=== PATIENT | female | born 1960 | race African-American/Black ===

== ENCOUNTER 2017-08-22 18:17 | Inpatient (IN) | payer OTHER ==
[2017-08-22 18:20] VITALS: BMI 24.2
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
[2017-08-22] MEDS ORDERED: ACETAMINOPHEN 325 MG TABLET (FP) PO PRN (19:23)
[2017-08-22] MEDS ORDERED: IBUPROFEN 400 MG TABLET (FP) PO PRN (19:23)
[2017-08-22] MEDS ORDERED: LOPERAMIDE HCL 2 MG CAPSULE PO PRN (19:23)
[2017-08-22] MEDS ORDERED: MAG HYDROX/AL HYDROX/SIMETH 30 ML UNIT-DOSE CUP PO PRN (19:23)
[2017-08-22] MEDS ORDERED: MENTHOL/PHENOL 1 EACH UD MM PRN (19:23)
[2017-08-22] MEDS ORDERED: guaiFENesin/D-METHORPHAN HB 10 ML UNIT-DOSE CUPS PO PRN (19:23)
[2017-08-22] MEDS ORDERED: METHADONE HCL 10 MG TABLET (FOR DETOX USE ONLY) PO ONE ×2 (19:23→23:00)
[2017-08-22] MEDS ORDERED: NICOTINE POLACRILEX 2 MG GUM BUC PRN (19:23)
[2017-08-22] MEDS ORDERED: hydrOXYzine PAMOATE 50 MG CAPSULE (FP) PO PRN (19:23)
[2017-08-22] MEDS ORDERED: MAGNESIUM HYDROX 2400MG/30ML ORAL SUSPENSION 30 ML CUP PO PRN (19:23)
[2017-08-22] MEDS ORDERED: P-EPHED 60MG/TRIPROLIDI 2.5MG TABLET PO PRN (19:23)
[2017-08-22] MEDS ORDERED: chlordiazePOXIDE HCL 25 MG CAPSULE PO PRN (19:23)
[2017-08-22] MEDS ORDERED: MAGNESIUM CITRATE 300 ML BOTTLE PO PRN (19:23)
[2017-08-22] MEDS ORDERED: chlordiazePOXIDE HCL 25 MG CAPSULE PO ONE (19:45)
[2017-08-22] MEDS: NICOTINE 21 MG/24 HOURS TOPICAL PATCH TD SCH (20:50)
[2017-08-22] MEDS ORDERED: MELATONIN 5 MG TABLETS PO PRN (22:00)
[2017-08-22] MEDS: chlordiazePOXIDE HCL 25 MG CAPSULE PO SCH (22:20)
[2017-08-22] MEDS: THIAMINE HCL 100 MG TABLET (FP) PO SCH (22:21)
[2017-08-23] MEDS: chlordiazePOXIDE HCL 25 MG CAPSULE PO SCH ×4 (05:46→22:14)
[2017-08-23] MEDS: PRENATAL VITAMINS W/ FOLIC ACID TABLET (FP) PO SCH (09:21)
[2017-08-23] MEDS: NICOTINE 21 MG/24 HOURS TOPICAL PATCH TD SCH (09:22)
[2017-08-23 09:54] LABS: URINE APPEARANCE CLOUDY; URINE BILIRUBIN NEGATIVE (<2.0 mg/dL); URINE COLOR YELLOW; URINE GLUCOSE (UA) NEGATIVE (NEGATIVE); URINE KETONE NEGATIVE (NEGATIVE); URINE LEUK ESTERASE NEGATIVE (NEGATIVE); URINE NITRITE NEGATIVE (NEGATIVE); URINE PROTEIN NEGATIVE (NEGATIVE); URINE UROBILINOGEN 4.0 E.U/dl mg/dL (0.2-1.0)
[2017-08-23 09:59] LABS: CHLORIDE 107 mmol/L (98-107); MCH 31.6 pg (25.7-33.7); MCHC 33.3 g/dl (32.0-36.0); MEAN PLT VOLUME 8.5 fl (7.5-11.1); PLATELET COUNT 253 K/MM3 (134-434); POTASSIUM 3.3 mmol/L (3.5-5.1); RDW 15.2 % (11.6-15.6); SODIUM 143 mmol/L (136-145); WHITE BLOOD COUNT 5.9 K/mm3 (4.0-10.0)
[2017-08-23] MEDS ORDERED: METHADONE HCL 10 MG TABLET (FOR DETOX USE ONLY) PO SCH (10:00)
[2017-08-23 10:13] LABS: ALK PHOS 115 U/L (45-117); ANION GAP 8 (8-16); BILIRUBIN,TOTAL 0.2 mg/dL (0.2-1.0); BLOOD UREA NITROGEN 14 mg/dL (7-18); CALCIUM 8.3 mg/dL (8.5-10.1); CO2 28 mmol/L (21-32); CREATININE 0.9 mg/dL (0.55-1.02); GLUCOSE,RANDOM 117 mg/dL (74-106); SGOT/AST 13 U/L (15-37); SGPT/ALT 15 U/L (12-78); TOT PROT 5.9 g/dl (6.4-8.2)
--- NOTE | 2017-08-23 14:34 | EKG ---
Test Reason : Blood Pressure : / mmHG Vent. Rate : 062 BPM Atrial Rate : 062 BPM P-R Int : 146 ms QRS Dur : 076 ms QT Int : 400 ms P-R-T Axes : 054 -23 014 degrees QTc Int : 406 ms NORMAL SINUS RHYTHM NORMAL ECG NO PREVIOUS ECGS AVAILABLE Confirmed by MD Jovany, Cali ([id number]) on 08/23/2017 2:34:32 PM Referred By: Fabien Lane Confirmed By:Cali Manzo MD
[2017-08-23] MEDS ORDERED: POTASSIUM CHLORIDE TABS 20 MEQ TABLET.ER (FP) PO ONE (15:49)
--- NOTE | 2017-08-23 15:57 | PN ---
[facility] CIWA - CIWA Score Nausea/Vomitin Muscle Tremors: 4-Moderate,w/Arms Extend Anxiety: 4-Mod. Anxious/Guarded Agitation: 4-Moderately Restless Paroxysmal Sweats: 3 Orientation: 0-Oriented Tacttile Disturbances: 1-Very Mild Itch/Numbness Auditory Disturbances: 0-None Visual Disturbances: 0-None Headache: 1-Very Mild CIWA-Ar Total Score: 20 BHS COWS - Scale Resting Pulse: 1= [place] 81-100 Sweatin= Chills/Flushing Restless Observation: 3= Extraneous Movement Pupil Size: 1= Pupils >than Normal Bone or Joint Aches: 2= Severe Diffuse Aches Runny Nose/ Eye Tearin= Runny Nose/Eyes GI Upset > 30mins: 2= Nausea/Diarrhea Tremor Observation of Outstretched Hands: 2= Slight Tremor Visible Yawning Observation: 1= 1-2x During Session Anxiety or Irritability: 2=Irritable/Anxious Goose Flesh Skin: 0=Smooth Skin COWS Score: 17 S Progress Note (SOAP) Subjective: Asleep, arousable, refused to speak with sports book writer Objective: 08/23/17 15:55 Last Vital Signs Temp Pulse Resp BP Pulse Ox 98.2 F 91 H 16 111/59 08/23/17 13:17 08/23/17 13:17 08/23/17 13:17 08/23/17 13:17 Laboratory Tests 08/23/17 08/23/17 08/23/17 07:15 07:15 07:15 WBC 5.9 RBC 4.10 Hgb 13.0 Hct 39.0 MCV 95.0 MCH 31.6 MCHC 33.3 RDW 15.2 Plt Count 253 MPV 8.5 D Sodium 143 Potassium 3.3 L Chloride 107 Carbon Dioxide 28 Anion Gap 8 BUN 14 Creatinine 0.9 Creat Clearance w eGFR > 60 Random Glucose 117 H Calcium 8.3 L Total Bilirubin 0.2 D AST 13 L ALT 15 Alkaline Phosphatase 115 Total Protein 5.9 L Albumin 3.0 L Urine Color Urine Appearance Urine pH Ur Specific [place] Urine Protein Urine Glucose (UA) Urine Ketones Urine Blood Urine Nitrite Urine Bilirubin Urine Urobilinogen Ur Leukocyte Esterase RPR Titer Nonreactive HIV 1&2 Antibody Screen HIV P24 Antigen 05/06/18 05/06/18 07:15 07:15 WBC RBC Hgb Hct MCV MCH MCHC RDW Plt Count MPV Sodium Potassium Chloride Carbon Dioxide Anion Gap BUN Creatinine Creat Clearance w eGFR Random Glucose Calcium Total Bilirubin AST ALT Alkaline Phosphatase Total Protein Albumin Urine Color Yellow Urine Appearance Cloudy Urine pH 7.0 Ur Specific [place] 1.019 Urine Protein Negative Urine Glucose (UA) Negative Urine Ketones Negative Urine Blood Negative Urine Nitrite Negative Urine Bilirubin Negative Urine Urobilinogen 4.0 e.u/dl H Ur Leukocyte Esterase Negative RPR Titer HIV 1&2 Antibody Screen Negative HIV P24 Antigen Negative Labs reviewed: Jose Roberto 3.3 Assessment: 08/23/17 15:56 Withdrawal symptoms Noted with hypokalemia Plan: Continue detox Hypokalemia: K Dur 40meq PO x 1 dose, repeat K level in AM
[2017-08-23] MEDS: THIAMINE HCL 100 MG TABLET (FP) PO SCH (22:14)
[2017-08-24] MEDS: chlordiazePOXIDE HCL 25 MG CAPSULE PO SCH ×2 (05:50→10:46)
[2017-08-24] MEDS ORDERED: METHADONE HCL 5 MG TABLET (FOR DETOX USE ONLY) PO SCH (10:00)
[2017-08-24 10:21] VITALS: BP 115/59; PULSE 83; TEMP 98.4
--- NOTE | 2017-08-24 10:45 | PN ---
[facility] CIWA - CIWA Score Nausea/Vomitin-Mild Nausea/No Vomiting Muscle Tremors: 4-Moderate,w/Arms Extend Anxiety: 4-Mod. Anxious/Guarded Agitation: 4-Moderately Restless Paroxysmal Sweats: 1-Minimal Palms Moist Orientation: 0-Oriented Tacttile Disturbances: 2-Mild Itch/Numbness/Burn Auditory Disturbances: 0-None Visual Disturbances: 0-None Headache: 0-None Present CIWA-Ar Total Score: 16 S COWS - Scale Resting Pulse: 0= [place] 80 or Below Sweatin= Chills/Flushing Restless Observation: 3= Extraneous Movement Pupil Size: 0= Normal to Room Light Bone or Joint Aches: 2= Severe Diffuse Aches Runny Nose/ Eye Tearin= Runny Nose/Eyes GI Upset > 30mins: 2= Nausea/Diarrhea Tremor Observation of Outstretched Hands: 2= Slight Tremor Visible Yawning Observation: 2= >3x During Session Anxiety or Irritability: 2=Irritable/Anxious Goose Flesh Skin: 0=Smooth Skin COWS Score: 16 [facility] Progress Note (SOAP) Subjective: joint pain body ache sweat tremor anxiety trouble sleep at night Objective: 08/24/17 10:44 Vital Signs Temperature 98.4 F 08/24/17 10:21 Pulse Rate 83 08/24/17 10:21 Respiratory Rate 18 08/24/17 10:21 Blood Pressure 115/59 08/24/17 10:21 O2 Sat by Pulse Oximetry (%) Laboratory Last Values WBC 5.9 K/mm3 (4.0-10.0) 08/23/17 07:15 RBC 4.10 M/mm3 (3.60-5.2) 08/23/17 07:15 Hgb 13.0 GM/dL (10.7-15.3) 08/23/17 07:15 Hct 39.0 % (32.4-45.2) 08/23/17 07:15 MCV 95.0 fl (80-96) 08/23/17 07:15 MCH 31.6 pg (25.7-33.7) 08/23/17 07:15 MCHC 33.3 g/dl (32.0-36.0) 08/23/17 07:15 RDW 15.2 % (11.6-15.6) 08/23/17 07:15 Plt Count 253 K/MM3 (134-434) 08/23/17 07:15 MPV 8.5 fl (7.5-11.1) D 08/23/17 07:15 Sodium 143 mmol/L (136-145) 08/23/17 07:15 Potassium 4.3 mmol/L (3.5-5.1) 08/24/17 07:00 Chloride 107 mmol/L (98-107) 08/23/17 07:15 Carbon Dioxide 28 mmol/L (21-32) 08/23/17 07:15 Anion Gap 8 (8-16) 08/23/17 07:15 BUN 14 mg/dL (7-18) 08/23/17 07:15 Creatinine 0.9 mg/dL (0.55-1.02) 08/23/17 07:15 Creat Clearance w eGFR > 60 (>60) 08/23/17 07:15 Random Glucose 117 mg/dL (74-106) H 08/23/17 07:15 Calcium 8.3 mg/dL (8.5-10.1) L 08/23/17 07:15 Total Bilirubin 0.2 mg/dL (0.2-1.0) D 08/23/17 07:15 AST 13 U/L (15-37) L 08/23/17 07:15 ALT 15 U/L (12-78) 08/23/17 07:15 Alkaline Phosphatase 115 U/L (45-117) 08/23/17 07:15 Total Protein 5.9 g/dl (6.4-8.2) L 08/23/17 07:15 Albumin 3.0 g/dl (3.4-5.0) L 08/23/17 07:15 Urine Color Yellow 08/23/17 07:15 Urine Appearance Cloudy 08/23/17 07:15 Urine pH 7.0 (5.0-8.0) 08/23/17 07:15 Ur Specific [place] 1.019 (1.001-1.035) 08/23/17 07:15 Urine Protein Negative (NEGATIVE) 08/23/17 07:15 Urine Glucose (UA) Negative (NEGATIVE) 08/23/17 07:15 Urine Ketones Negative (NEGATIVE) 08/23/17 07:15 Urine Blood Negative (NEGATIVE) 08/23/17 07:15 Urine Nitrite Negative (NEGATIVE) 08/23/17 07:15 Urine Bilirubin Negative (<2.0 mg/dL) 08/23/17 07:15 Urine Urobilinogen 4.0 e.u/dl mg/dL (0.2-1.0) H 08/23/17 07:15 Ur Leukocyte Esterase Negative (NEGATIVE) 08/23/17 07:15 RPR Titer Nonreactive (NONREACTIVE) 08/23/17 07:15 HIV 1&2 Antibody Screen Negative 08/23/17 07:15 HIV P24 Antigen Negative 08/23/17 07:15 lab noted Assessment: 08/24/17 10:45 withdrawal sx Plan: continue detox
[2017-08-24] MEDS: PRENATAL VITAMINS W/ FOLIC ACID TABLET (FP) PO SCH (10:46)
[2017-08-24] MEDS: NICOTINE 21 MG/24 HOURS TOPICAL PATCH TD SCH (10:46)
--- NOTE | 2017-08-24 12:07 | DS ---
[facility] Detox Discharge Summary Admission Date: 08/22/17 Discharge Date: 08/24/17 - History Present History: Alcohol Dependence, Opioid Dependence Additional Comments: 56 years old female admitted 08/22/17 for alcohol and opioid detox patient wants to terminate detox regimen and return to the community today alert oriented x 3 no acute distress agrees to consider community self help groups for sobriety - Physical Exam Results Vital Signs: Vital Signs Temperature 98.4 F 08/24/17 10:21 Pulse Rate 83 08/24/17 10:21 Respiratory Rate 18 08/24/17 10:21 Blood Pressure 115/59 08/24/17 10:21 O2 Sat by Pulse Oximetry (%) Pertinent Admission Physical Exam Findings: withdrawal sx Vital Signs Temperature 98.4 F 08/24/17 10:21 Pulse Rate 83 08/24/17 10:21 Respiratory Rate 18 08/24/17 10:21 Blood Pressure 115/59 08/24/17 10:21 O2 Sat by Pulse Oximetry (%) Laboratory Last Values WBC 5.9 K/mm3 (4.0-10.0) 08/23/17 07:15 RBC 4.10 M/mm3 (3.60-5.2) 08/23/17 07:15 Hgb 13.0 GM/dL (10.7-15.3) 08/23/17 07:15 Hct 39.0 % (32.4-45.2) 08/23/17 07:15 MCV 95.0 fl (80-96) 08/23/17 07:15 MCH 31.6 pg (25.7-33.7) 08/23/17 07:15 MCHC 33.3 g/dl (32.0-36.0) 08/23/17 07:15 RDW 15.2 % (11.6-15.6) 08/23/17 07:15 Plt Count 253 K/MM3 (134-434) 08/23/17 07:15 MPV 8.5 fl (7.5-11.1) D 08/23/17 07:15 Sodium 143 mmol/L (136-145) 08/23/17 07:15 Potassium 4.3 mmol/L (3.5-5.1) 08/24/17 07:00 Chloride 107 mmol/L (98-107) 08/23/17 07:15 Carbon Dioxide 28 mmol/L (21-32) 08/23/17 07:15 Anion Gap 8 (8-16) 08/23/17 07:15 BUN 14 mg/dL (7-18) 08/23/17 07:15 Creatinine 0.9 mg/dL (0.55-1.02) 08/23/17 07:15 Creat Clearance w eGFR > 60 (>60) 08/23/17 07:15 Random Glucose 117 mg/dL (74-106) H 08/23/17 07:15 Calcium 8.3 mg/dL (8.5-10.1) L 08/23/17 07:15 Total Bilirubin 0.2 mg/dL (0.2-1.0) D 08/23/17 07:15 AST 13 U/L (15-37) L 08/23/17 07:15 ALT 15 U/L (12-78) 08/23/17 07:15 Alkaline Phosphatase 115 U/L (45-117) 08/23/17 07:15 Total Protein 5.9 g/dl (6.4-8.2) L 08/23/17 07:15 Albumin 3.0 g/dl (3.4-5.0) L 08/23/17 07:15 Urine Color Yellow 08/23/17 07:15 Urine Appearance Cloudy 08/23/17 07:15 Urine pH 7.0 (5.0-8.0) 08/23/17 07:15 Ur Specific [place] 1.019 (1.001-1.035) 08/23/17 07:15 Urine Protein Negative (NEGATIVE) 08/23/17 07:15 Urine Glucose (UA) Negative (NEGATIVE) 08/23/17 07:15 Urine Ketones Negative (NEGATIVE) 08/23/17 07:15 Urine Blood Negative (NEGATIVE) 08/23/17 07:15 Urine Nitrite Negative (NEGATIVE) 08/23/17 07:15 Urine Bilirubin Negative (<2.0 mg/dL) 08/23/17 07:15 Urine Urobilinogen 4.0 e.u/dl mg/dL (0.2-1.0) H 08/23/17 07:15 Ur Leukocyte Esterase Negative (NEGATIVE) 08/23/17 07:15 RPR Titer Nonreactive (NONREACTIVE) 08/23/17 07:15 HIV 1&2 Antibody Screen Negative 08/23/17 07:15 HIV P24 Antigen Negative 08/23/17 07:15 lab noted - Treatment Hospital Course: Detox Protocol Followed, Responded well Patient has Accepted a Rehab Referral to: [facility] - Medication Discharge Medications: Ambulatory Orders NK [No Known Home Medication] 09/25/14 - Diagnosis (1) Alcohol dependence with uncomplicated withdrawal Status: Acute (2) Uncomplicated opioid dependence Status: Acute (3) Nicotine dependence Status: Acute Qualifiers: Nicotine product type: cigarettes Substance use status: in withdrawal Qualified Code(s): F17.213 - Nicotine dependence, cigarettes, with withdrawal - AMA Did Patient Leave Against Medical Advice: Yes
[2017-08-24] MEDS ORDERED: chlordiazePOXIDE 5 MG CAPSULE PO SCH (23:00)
[2017-08-25] MEDS ORDERED: chlordiazePOXIDE HCL 10 MG CAPSULE PO SCH (23:00)
[2017-08-26] MEDS ORDERED: METHADONE HCL 10 MG TABLET (FOR DETOX USE ONLY) PO SCH (10:00)
[2017-08-27] MEDS ORDERED: METHADONE HCL 5 MG TABLET (FOR DETOX USE ONLY) PO SCH (06:00)
== END 2017-08-24 11:30 | disposition left against medical advice (07) | DRG 894 ==
LOC: YASAS 18:17 → Y6N 19:24
PROVIDERS: ADMIT Internal Medicine; ATTEND Internal Medicine
PROC: HZ2ZZZZ Detoxification Services for Substance Abuse Treatment (ICD-10-PCS; principal; 2017-08-22)
DX: F11.20 Opioid dependence, uncomplicated (principal); F10.230 Alcohol dependence with withdrawal, uncomplicated; F17.213 Nicotine dependence, cigarettes, with withdrawal; F32.9 Major depressive disorder, single episode, unspecified; E87.6 Hypokalemia; H91.91 Unspecified hearing loss, right ear; Z59.0 Homelessness
CPT/HCPCS: 36415; 80053; 81003; 84132; 85027; 86593; 87389; 93005; 93010

== ENCOUNTER 2018-08-06 13:18 | Inpatient (IN) | payer OTHER ==
[2018-08-06 15:45] VITALS: BMI 24.4
--- NOTE | 2018-08-06 16:53 | HP ---
COWS - Scale Resting Pulse: 1= [place] 81-100 Sweatin=Flushed/Facial Moisture Restless Observation: 1= Difficult to Sit Still Pupil Size: 2= Moderately Dilated (Pupils = 5 mm) Bone or Joint Aches: 0= None Runny Nose/ Eye Tearin= Nasal Congestion GI Upset > 30mins: 1= Stomach Cramp Tremor Observation: 4= Gross Tremor/Twitching Yawning Observation: 0= None Anxiety or Irritability: 1=Feels Anxious/Irritable Goose Flesh Skin: 0=Smooth Skin COWS Score: 13 CIWA Score Nausea/Vomitin-No Nausea/No Vomiting Muscle Tremors: 4-Moderate,w/Arms Extend Anxiety: 1-Mildly Anxious Agitation: 4-Moderately Restless Paroxysmal Sweats: 3 Orientation: 1-Uncertain about Date Tacttile Disturbances: 0-None Auditory Disturbances: 0-None Visual Disturbances: 0-None Headache: 2-Mild CIWA-Ar Total Score: 15 - Admission Criteria OAS Guidelines: Admission for Medically Managed Detox: Requires at least one of the followin. CIWA greater than 12 2. Seizures within the past 24 hours 3. Delirium tremens within the past 24 hours 4. Hallucinations within the past 24 hours 5. Acute intervention needed for co occurring medical disorder 6. Acute intervention needed for co occurring psychiatric disorder 7. Severe withdrawal that cannot be handled at a lower level of care (continued vomiting, continued diarrhea, abnormal vital signs) requiring intravenous medication and/or fluids 8. Patient presents the following: CIWA greater than 12 Admission Criteria Met: Admission criteria met Admission ROS [facility] Chief Complaint: Having heroin and alcohol withdrawal. Allergies/Adverse Reactions: Allergies Allergy/AdvReac Type Severity Reaction Status Date / Time No Known Allergies Allergy Verified 08/06/18 15:38 History of Present Illness: Here for detox from heroin and alcohol. Heroin use began at age 52. Three overdoses. Last 2017. States has a Narcan kit at home. Alcohol use began at age 22. States current use x 20 years. Crack/cocaine use began at age 52. Nicotine use began at age 22. Denies seizures or overdoses. Denies knowing taking benzo's. Longest length of sobriety, in community, 3 days. Has tried methadone and Suboxone, but didn't stick to program. PMHx: Deaf (R) ear, increased urination, anemia( ?), MHHx: Insomnia. Slight depression, anxiety. Denies thoughts of harming self or others. Last saw a [facility] Provider, in rehab, 1 year ago. Patient Name: Jodie Liu Date: 1960 Address: [address] [place], [place] [id number] Sex: Female Rx Written Rx Dispensed Drug Quantity Days Supply Prescriber Name 06/03/2018 06/03/2018 buprenorphine-naloxone 8-2 mg sl tablet 1 1 Cony Turk Exam Limitations: No Limitations - Ebola screening Have you traveled outside of the country in the last 21 days: No (N) Have you had contact with anyone from an Ebola affected area: No Have you been sick,other than usual withdrawal symptoms: No (Denies recent measles exposure) Do you have a fever: No - Review of Systems Constitutional: Chills, Diaphoresis, Changes in sleep (Difficulty falling asleep - used to take Trazodone) EENT: reports: Blurred Vision, Hearing Loss (Dear (R) ear since 2006 r/t trauma) , Dental Problems (Mising some teeth. No dental pain. Chews and swallows ok.) Respiratory: reports: No Symptoms reported Cardiac: reports: No Symptoms Reported GI: reports: Vomiting : reports: Frequency (4x/night nocturia x 2 years. Denies burning or blood w/ urination.) Musculoskeletal: reports: No Symptoms Reported Integumentary: reports: No Symptoms Reported Neuro: reports: Headache (Mild), Tremors Endocrine: reports: Increased Urine Hematology: reports: Anemia (Decreased iron levels) Psychiatric: reports: Judgement Intact, Agitated, Anxious, Depressed (Denies thoughts of harmimg self or others.), other (Unsure of exact date. Knows month and year.) Patient History - Patient Medical History Hx Anemia: No Hx Asthma: No Hx Chronic Obstructive Pulmonary Disease (COPD): No Hx Cancer: No Hx Cardiac Disorders: No Hx Congestive Heart Failure: No Hx Hypertension: No Hx Hypercholesterolemia: No Hx Pacemaker: No HX Cerebrovascular Accident: No Hx Seizures: No Hx Dementia: No Hx Diabetes: No Hx Gastrointestinal Disorders: No Hx Liver Disease: No Hx Genitourinary Disorders: No Hx Sexually Transmitted Disorders: No Hx Renal Disease (ESRD): No Hx Thyroid Disease: No Hx Human Immunodeficiency Virus (HIV): No Hx Hepatitis C: No Hx Depression: Yes Hx Suicide Attempt: No Hx Bipolar Disorder: No Hx Schizophrenia: No - Patient Surgical History Past Surgical History: Yes Hx Neurologic Surgery: No Hx Cataract Extraction: No Hx Cardiac Surgery: No Hx Lung Surgery: No Hx Breast Surgery: No Hx Breast Biopsy: No Hx Abdominal Surgery: No Hx Appendectomy: No Hx Cholecystectomy: No Hx Genitourinary Surgery: No Hx Section: No Hx Orthopedic Surgery: Yes ( R lateral bunionectomy.) Hx Hysterectomy: No Anesthesia Reaction: No - PPD History Previous Implant?: Yes Documented Results: Negative w/proof Implanted On Prior [facility] Admission?: Yes Date: 08/24/17 PPD to be Administered?: No - Reproductive History Last Menstrual Period: 06/21/13 - Smoking Cessation Smoking history: Current every day smoker Have you smoked in the past 12 months: Yes Aproximately how many cigarettes per day: 20 Cigars Per Day: 0 Hx Chewing Tobacco Use: No Initiated information on smoking cessation: Yes 'Breaking Loose' booklet given: 08/06/18 - Substance & Tx. History Hx Alcohol Use: Yes Hx Substance Use: Yes Substance Use Type: Alcohol, Cocaine, Heroin Hx Substance Use Treatment: Yes (detox, MMTP/Suboxone attempts) - Substances abused Alcohol Substance route: Oral Frequency: Daily Amount used: 1 PINT VODKA Age of first use: 22 Date of last use: 08/05/18 Cocaine Substance route: Smoking Frequency: Daily Amount used: 4 ROCKS Age of first use: 52 Date of last use: 08/05/18 Heroin Other (specify): SNIFF Frequency: Daily Amount used: 6 BAGS Age of first use: 52 Date of last use: 08/05/18 Family Disease History - Family Disease History Family Disease History: Diabetes: Mother Admission Physical Exam S - Vital Signs Vital Signs: Vital Signs - 24 hr 08/06/18 15:38 Temperature 98.7 F Pulse Rate 87 Respiratory 18 Rate Blood Pressure 98/67 - Physical General Appearance: Yes: Nourished, Mild Distress, Tremorous, Sweating ( Increased facial moisture), Anxious HEENTM: Yes: EOMI (Jerking movements of eyes upon lateral gaze), Hearing grossly Normal, Normocephalic, LATISHA (Pupils = 5 mm), Pharynx Normal Respiratory: Yes: Lungs Clear, Normal Breath Sounds, No Respiratory Distress Neck: Yes: No masses,lesions,Nodules, Supple Breast: Yes: Breast Exam Deferred Cardiology: Yes: Regular Rhythm, Regular Rate, S1, S2 Abdominal: Yes: Flat, Soft, Increased Bowel Sounds Genitourinary: Yes: Frequency Back: Yes: Normal Inspection Musculoskeletal: Yes: full range of Motion, Gait Steady (Slow but steady) Extremities: Yes: Normal Capillary Refill, Tremors (Gross tremors) Neurological: Yes: wordpress developer II-XII NML intact (Jerking movements of eyes upon lateral gaze) Integumentary: Yes: Normal Color, Dry (Dry sjin except for increased facial moisture), Warm Lymphatic: Yes: Within Normal Limits - Diagnostic (1) Opioid dependence with withdrawal Current Visit: Yes Status: Acute (2) Nystagmus Current Visit: Yes Status: Acute Comment: Undetermined acute or chronic (3) History of partial deafness Current Visit: Yes Status: Chronic Comment: States no hearing (R) ear r/t trauma (4) Alcohol dependence with uncomplicated withdrawal Current Visit: Yes Status: Acute (5) Cocaine dependence Current Visit: No Status: Chronic Qualifiers: Substance use status: uncomplicated Qualified Code(s): F14.20 - Cocaine dependence, uncomplicated (6) Insomnia Current Visit: Yes Status: Chronic Qualifiers: Insomnia type: unspecified Qualified Code(s): G47.00 - Insomnia, unspecified (7) Nicotine dependence Current Visit: Yes Status: Chronic Qualifiers: Nicotine product type: cigarettes Substance use status: in withdrawal Qualified Code(s): F17.213 - Nicotine dependence, cigarettes, with withdrawal (8) Nocturia more than twice per night Current Visit: Yes Status: Chronic Comment: Denies burning, pain, blood w/ urination Cleared for Admission S - Detox or Rehab [facility] Level of Care: Medically Managed Detox Regimen/Protocol: Methadone/Librium Breathalyzer - Breathalyzer Breathalyzer: 0 POC Urine test - Test device test lot number: [id number] Expiration date: 12/19/19 - Control test control: Yes - Result Urine Test Results: Negative - NO line present Urine Drug Screen - Test Device Lot number: [id number] Expiration date: 03/19/20 - Control Is test valid?: Yes - Results Drug screen NEGATIVE: No Urine drug screen results: ANTONIO-Cocaine, MOP-Opiates, BZO-Benzodiazepines Inpatient Rehab Admission - Rehab Decision to Admit Inpatient rehab admission?: No
[2018-08-06] MEDS ORDERED: MAG HYDROX/AL HYDROX/SIMETH 30 ML UNIT-DOSE CUP PO PRN (17:23)
[2018-08-06] MEDS ORDERED: ACETAMINOPHEN 325 MG TABLET (FP) PO PRN ×2 (17:23)
[2018-08-06] MEDS ORDERED: MENTHOL/PHENOL 1 EACH UD MM PRN (17:23)
[2018-08-06] MEDS ORDERED: guaiFENesin 200 MG/10 ML 10 ML UNIT-DOSE CUPS PO PRN (17:23)
[2018-08-06] MEDS ORDERED: MAGNESIUM HYDROX 2400MG/30ML ORAL SUSPENSION 30 ML CUP PO PRN (17:23)
[2018-08-06] MEDS ORDERED: BISMUTH SUBSALICYLATE 524 MG/30 ML UD PO PRN (17:23)
[2018-08-06] MEDS ORDERED: IBUPROFEN 400 MG TABLET (FP) PO PRN (17:23)
[2018-08-06] MEDS ORDERED: chlordiazePOXIDE HCL 25 MG CAPSULE PO ONE (17:23)
[2018-08-06] MEDS ORDERED: MAGNESIUM CITRATE 300 ML BOTTLE PO PRN (17:23)
[2018-08-06] MEDS ORDERED: NICOTINE POLACRILEX 2 MG GUM BUC PRN (17:23)
[2018-08-06] MEDS: chlordiazePOXIDE HCL 25 MG CAPSULE PO PRN (18:58)
[2018-08-06] MEDS ORDERED: METHADONE HCL 10 MG TABLET (FOR DETOX USE ONLY) PO ONE ×3 (19:00→23:00)
[2018-08-06] MEDS ORDERED: chlordiazePOXIDE HCL 10 MG CAPSULE PO ONE (19:30)
[2018-08-06] MEDS: cloNIDine HCL 0.1 MG TABLET PO PRN (20:49)
[2018-08-06] MEDS: METHOCARBAMOL 500 MG TABLET PO PRN (20:50)
[2018-08-07 00:05] LABS: URINE APPEARANCE CLOUDY; URINE BILIRUBIN NEGATIVE (NEGATIVE); URINE COLOR YELLOW; URINE GLUCOSE (UA) NEGATIVE (NEGATIVE); URINE KETONE NEGATIVE (NEGATIVE); URINE LEUK ESTERASE NEGATIVE (NEGATIVE); URINE NITRITE NEGATIVE (NEGATIVE); URINE PROTEIN NEGATIVE (NEGATIVE)
[2018-08-07] MEDS: THIAMINE HCL 100 MG TABLET (FP) PO SCH ×2 (00:20→23:31)
[2018-08-07] MEDS: chlordiazePOXIDE HCL 25 MG CAPSULE PO SCH ×5 (00:21→23:31)
[2018-08-07] MEDS ORDERED: METHADONE HCL 10 MG TABLET (FOR DETOX USE ONLY) PO ONE (01:38)
[2018-08-07] MEDS: chlordiazePOXIDE HCL 25 MG CAPSULE PO PRN (01:52)
[2018-08-07] MEDS ORDERED: METHADONE HCL 5 MG TABLET (FOR DETOX USE ONLY) PO ONE (10:00)
[2018-08-07 10:09] LABS: HEMATOCRIT 35.8 % (32.4-45.2); MCHC 33.5 g/dl (32.0-36.0); MEAN CELL VOLUME 95.5 fl (80-96); MEAN PLT VOLUME 8.4 fl (7.5-11.1); PLATELET COUNT 252 K/MM3 (134-434); RBC 3.75 M/mm3 (3.60-5.2); RDW 14.9 % (11.6-15.6)
[2018-08-07] MEDS: NICOTINE 14 MG/24 HOURS TOPICAL PATCH TD SCH (10:21)
[2018-08-07] MEDS: PRENATAL VITAMINS W/ FOLIC ACID TABLET (FP) PO SCH (10:21)
[2018-08-07 10:27] LABS: ALK PHOS 126 U/L (45-117); ANION GAP 3 MMOL/L (8-16); BILIRUBIN,TOTAL 0.3 mg/dL (0.2-1); BLOOD UREA NITROGEN 17 mg/dL (7-18); CALCIUM 8.9 mg/dL (8.5-10.1); CHLORIDE 109 mmol/L (98-107); CO2 29 mmol/L (21-32); CREATININE 0.7 mg/dL (0.55-1.3); GLUCOSE,RANDOM 86 mg/dL (74-106); POTASSIUM 3.9 mmol/L (3.5-5.1); SGOT/AST 12 U/L (15-37); SGPT/ALT 18 U/L (13-61); SODIUM 142 mmol/L (136-145); TOT PROT 5.9 g/dl (6.4-8.2)
--- NOTE | 2018-08-07 14:29 | EKG ---
Test Reason : Blood Pressure : / mmHG Vent. Rate : 066 BPM Atrial Rate : 066 BPM P-R Int : 146 ms QRS Dur : 078 ms QT Int : 382 ms P-R-T Axes : 056 -15 034 degrees QTc Int : 400 ms NORMAL SINUS RHYTHM LOW VOLTAGE QRS BORDERLINE ECG WHEN COMPARED WITH ECG OF 22-AUG-2017 21:00, NO SIGNIFICANT CHANGE WAS FOUND Confirmed by MD BRANDON, GINO ([id number]) on 08/07/2018 2:28:43 PM Referred By: Confirmed By:GINO TAYLOR MD
--- NOTE | 2018-08-07 17:40 | PN ---
[facility] CIWA - CIWA Score Nausea/Vomitin-No Nausea/No Vomiting Muscle Tremors: 2 Anxiety: 2 Agitation: 1-Slight > Activity Paroxysmal Sweats: 4-Forehead w/Sweat Beads Orientation: 0-Oriented Tacttile Disturbances: 0-None Auditory Disturbances: 0-None Visual Disturbances: 0-None Headache: 0-None Present CIWA-Ar Total Score: 9 BHS COWS - Scale Resting Pulse: 0= RI 80 or Below Sweatin= Beads of Sweat on Face Restless Observation: 0= Sits Still Pupil Size: 0= Normal to Room Light Bone or Joint Aches: 1= Mild Discomfort Runny Nose/ Eye Tearin= None GI Upset > 30mins: 0= None Tremor Observation of Outstretched Hands: 2= Slight Tremor Visible Yawning Observation: 1= 1-2x During Session Anxiety or Irritability: 1=Feels Anxious/Irritable Goose Flesh Skin: 0=Smooth Skin COWS Score: 8 S Progress Note (SOAP) Subjective: sweats irritable headache Objective: 08/07/18 17:39 Vital Signs 08/07/18 08/07/18 10:27 14:45 Temperature 97.9 F 96.6 F L Pulse Rate 66 85 Respiratory 18 18 Rate Blood Pressure 103/67 102/63 Laboratory Last Values WBC 6.0 K/mm3 (4.0-10.0) 08/07/18 07:48 RBC 3.75 M/mm3 (3.60-5.2) 08/07/18 07:48 Hgb 12.0 GM/dL (10.7-15.3) 08/07/18 07:48 Hct 35.8 % (32.4-45.2) 08/07/18 07:48 MCV 95.5 fl (80-96) 08/07/18 07:48 MCH 32.0 pg (25.7-33.7) 08/07/18 07:48 MCHC 33.5 g/dl (32.0-36.0) 08/07/18 07:48 RDW 14.9 % (11.6-15.6) 08/07/18 07:48 Plt Count 252 K/MM3 (134-434) 08/07/18 07:48 MPV 8.4 fl (7.5-11.1) 08/07/18 07:48 Sodium 142 mmol/L (136-145) 08/07/18 07:48 Potassium 3.9 mmol/L (3.5-5.1) 08/07/18 07:48 Chloride 109 mmol/L (98-107) H 08/07/18 07:48 Carbon Dioxide 29 mmol/L (21-32) 08/07/18 07:48 Anion Gap 3 MMOL/L (8-16) L 08/07/18 07:48 BUN 17 mg/dL (7-18) 08/07/18 07:48 Creatinine 0.7 mg/dL (0.55-1.3) 08/07/18 07:48 Creat Clearance w eGFR 86.88 (>60) 08/07/18 07:48 Random Glucose 86 mg/dL (74-106) 08/07/18 07:48 Calcium 8.9 mg/dL (8.5-10.1) 08/07/18 07:48 Total Bilirubin 0.3 mg/dL (0.2-1) 08/07/18 07:48 AST 12 U/L (15-37) L 08/07/18 07:48 ALT 18 U/L (13-61) 08/07/18 07:48 Alkaline Phosphatase 126 U/L (45-117) H 08/07/18 07:48 Total Protein 5.9 g/dl (6.4-8.2) L 08/07/18 07:48 Albumin 3.0 g/dl (3.4-5.0) L 08/07/18 07:48 Urine Color Yellow 08/06/18 18:48 Urine Appearance Cloudy 08/06/18 18:48 Urine pH 7.0 (5.0-8.0) 08/06/18 18:48 Ur Specific [place] 1.022 (1.010-1.035) 08/06/18 18:48 Urine Protein Negative (NEGATIVE) 08/06/18 18:48 Urine Glucose (UA) Negative (NEGATIVE) 08/06/18 18:48 Urine Ketones Negative (NEGATIVE) 08/06/18 18:48 Urine Blood Negative (NEGATIVE) 08/06/18 18:48 Urine Nitrite Negative (NEGATIVE) 08/06/18 18:48 Urine Bilirubin Negative (NEGATIVE) 08/06/18 18:48 Urine Urobilinogen 1.0 mg/dL (0.2-1.0) 08/06/18 18:48 Ur Leukocyte Esterase Negative (NEGATIVE) 08/06/18 18:48 POC Urine HCG, Qual Negative 08/06/18 18:48 Labs noted Assessment: 08/07/18 17:39 AOX3 no distress full rom Ambulating in the unit mild withdrawal symptoms Plan: continue detox increase fluids continue to monitor
[2018-08-07] MEDS: MELATONIN 5 MG TABLETS PO PRN (23:31)
[2018-08-07] MEDS: cloNIDine HCL 0.1 MG TABLET PO PRN (23:32)
[2018-08-07] MEDS: METHOCARBAMOL 500 MG TABLET PO PRN (23:33)
[2018-08-08] MEDS: chlordiazePOXIDE HCL 25 MG CAPSULE PO SCH ×3 (05:52→18:58)
[2018-08-08] MEDS ORDERED: METHADONE HCL 5 MG TABLET (FOR DETOX USE ONLY) PO ONE (10:00)
[2018-08-08] MEDS: PRENATAL VITAMINS W/ FOLIC ACID TABLET (FP) PO SCH (10:47)
[2018-08-08] MEDS: NICOTINE 14 MG/24 HOURS TOPICAL PATCH TD SCH (10:47)
[2018-08-08] MEDS: METHOCARBAMOL 500 MG TABLET PO PRN ×2 (15:53→22:33)
[2018-08-08] MEDS: chlordiazePOXIDE HCL 25 MG CAPSULE PO PRN ×2 (15:53→22:33)
--- NOTE | 2018-08-08 17:30 | PN ---
[facility] CIWA - CIWA Score Nausea/Vomitin-Mild Nausea/No Vomiting Muscle Tremors: 3 Anxiety: 3 Agitation: 3 Paroxysmal Sweats: 3 Orientation: 0-Oriented Tacttile Disturbances: 0-None Auditory Disturbances: 0-None Visual Disturbances: 0-None Headache: 0-None Present CIWA-Ar Total Score: 13 BHS COWS - Scale Resting Pulse: 0= [place] 80 or Below Sweatin= Chills/Flushing Restless Observation: 1= Difficult to Sit Still Pupil Size: 0= Normal to Room Light Bone or Joint Aches: 2= Severe Diffuse Aches Runny Nose/ Eye Tearin= Runny Nose/Eyes GI Upset > 30mins: 1= Stomach Cramp Tremor Observation of Outstretched Hands: 2= Slight Tremor Visible Yawning Observation: 0= None Anxiety or Irritability: 2=Irritable/Anxious Goose Flesh Skin: 0=Smooth Skin COWS Score: 11 S Progress Note (SOAP) Subjective: Very anxious, interrupted sleep Objective: 08/08/18 17:29 Last Vital Signs Temp Pulse Resp BP Pulse Ox 98.0 F 66 18 101/56 L 08/08/18 14:33 08/08/18 14:33 08/08/18 14:33 08/08/18 14:33 Laboratory Tests 08/06/18 08/06/18 08/07/18 18:48 18:48 07:48 WBC 6.0 RBC 3.75 Hgb 12.0 Hct 35.8 MCV 95.5 MCH 32.0 MCHC 33.5 RDW 14.9 Plt Count 252 MPV 8.4 Sodium Potassium Chloride Carbon Dioxide Anion Gap BUN Creatinine Creat Clearance w eGFR Random Glucose Calcium Total Bilirubin AST ALT Alkaline Phosphatase Total Protein Albumin Urine Color Yellow Urine Appearance Cloudy Urine pH 7.0 Ur Specific [place] 1.022 Urine Protein Negative Urine Glucose (UA) Negative Urine Ketones Negative Urine Blood Negative Urine Nitrite Negative Urine Bilirubin Negative Urine Urobilinogen 1.0 Ur Leukocyte Esterase Negative POC Urine HCG, Qual Negative RPR Titer 08/07/18 08/07/18 07:48 07:48 WBC RBC Hgb Hct MCV MCH MCHC RDW Plt Count MPV Sodium 142 Potassium 3.9 Chloride 109 H Carbon Dioxide 29 Anion Gap 3 L BUN 17 Creatinine 0.7 Creat Clearance w eGFR 86.88 Random Glucose 86 Calcium 8.9 Total Bilirubin 0.3 AST 12 L ALT 18 Alkaline Phosphatase 126 H Total Protein 5.9 L Albumin 3.0 L Urine Color Urine Appearance Urine pH Ur Specific [place] Urine Protein Urine Glucose (UA) Urine Ketones Urine Blood Urine Nitrite Urine Bilirubin Urine Urobilinogen Ur Leukocyte Esterase POC Urine HCG, Qual RPR Titer Nonreactive Labs reviewed Assessment: 08/08/18 17:30 Withdrawal symptoms Plan: Continue detox Encouraged PO water hydration
[2018-08-08] MEDS: hydrOXYzine HCL 25 MG TABLET (FP) PO PRN (22:34)
[2018-08-08] MEDS: cloNIDine HCL 0.1 MG TABLET PO PRN (22:34)
[2018-08-08] MEDS: MELATONIN 5 MG TABLETS PO PRN (22:34)
[2018-08-08] MEDS: chlordiazePOXIDE HCL 10 MG CAPSULE PO SCH (22:35)
[2018-08-08] MEDS: THIAMINE HCL 100 MG TABLET (FP) PO SCH (22:35)
[2018-08-08] MEDS ORDERED: chlordiazePOXIDE HCL 10 MG CAPSULE PO PRN (23:00)
[2018-08-09] MEDS: chlordiazePOXIDE HCL 10 MG CAPSULE PO SCH ×3 (05:35→17:09)
[2018-08-09] MEDS ORDERED: METHADONE HCL 10 MG TABLET (FOR DETOX USE ONLY) PO ONE ×3 (06:00→14:00)
[2018-08-09] MEDS: NICOTINE 14 MG/24 HOURS TOPICAL PATCH TD SCH (10:42)
[2018-08-09] MEDS: PRENATAL VITAMINS W/ FOLIC ACID TABLET (FP) PO SCH (10:43)
[2018-08-09] MEDS: METHOCARBAMOL 500 MG TABLET PO PRN ×2 (10:46→22:26)
--- NOTE | 2018-08-09 15:35 | PN ---
BHS COWS - Scale Resting Pulse: 0= ME 80 or Below Sweatin= No chills or Flushing Restless Observation: 1= Difficult to Sit Still Pupil Size: 0= Normal to Room Light Bone or Joint Aches: 1= Mild Discomfort Runny Nose/ Eye Tearin= None GI Upset > 30mins: 0= None Tremor Observation of Outstretched Hands: 0= None Yawning Observation: 1= 1-2x During Session Anxiety or Irritability: 1=Feels Anxious/Irritable Goose Flesh Skin: 0=Smooth Skin COWS Score: 4 BHS Progress Note (SOAP) Subjective: PATIENT C/O MILD BODY ACHES, ANXIETY, DIFFICULTY SITTING STILL. Objective: 08/09/18 15:32 Laboratory Tests 08/06/18 08/06/18 08/07/18 18:48 18:48 07:48 WBC 6.0 RBC 3.75 Hgb 12.0 Hct 35.8 MCV 95.5 MCH 32.0 MCHC 33.5 RDW 14.9 Plt Count 252 MPV 8.4 Sodium Potassium Chloride Carbon Dioxide Anion Gap BUN Creatinine Creat Clearance w eGFR Random Glucose Calcium Total Bilirubin AST ALT Alkaline Phosphatase Total Protein Albumin Urine Color Yellow Urine Appearance Cloudy Urine pH 7.0 Ur Specific [place] 1.022 Urine Protein Negative Urine Glucose (UA) Negative Urine Ketones Negative Urine Blood Negative Urine Nitrite Negative Urine Bilirubin Negative Urine Urobilinogen 1.0 Ur Leukocyte Esterase Negative POC Urine HCG, Qual Negative RPR Titer 08/07/18 08/07/18 07:48 07:48 WBC RBC Hgb Hct MCV MCH MCHC RDW Plt Count MPV Sodium 142 Potassium 3.9 Chloride 109 H Carbon Dioxide 29 Anion Gap 3 L BUN 17 Creatinine 0.7 Creat Clearance w eGFR 86.88 Random Glucose 86 Calcium 8.9 Total Bilirubin 0.3 AST 12 L ALT 18 Alkaline Phosphatase 126 H Total Protein 5.9 L Albumin 3.0 L Urine Color Urine Appearance Urine pH Ur Specific [place] Urine Protein Urine Glucose (UA) Urine Ketones Urine Blood Urine Nitrite Urine Bilirubin Urine Urobilinogen Ur Leukocyte Esterase POC Urine HCG, Qual RPR Titer Nonreactive Vital Signs Temperature 97.5 F L 08/09/18 13:51 Pulse Rate 85 08/09/18 13:51 Respiratory Rate 18 08/09/18 13:51 Blood Pressure 105/59 L 08/09/18 13:51 O2 Sat by Pulse Oximetry (%) PE: ALERT AND ORIENTED X 3 SKIN WARM AND DRY +PERRLA, EOMS INTACT BL EXT FULL ROM, NO TREMORS AMB AD SERGIO MILDLY ANXIOUS/RESTLESS Assessment: 08/09/18 15:35 WITHDRAWAL SX Plan: CONTINUE DETOX ENCOURAGE ORAL FLUIDS FOR D/C IN AM
[2018-08-09] MEDS: hydrOXYzine HCL 25 MG TABLET (FP) PO PRN (22:26)
[2018-08-09] MEDS: THIAMINE HCL 100 MG TABLET (FP) PO SCH (22:26)
[2018-08-09] MEDS: MELATONIN 5 MG TABLETS PO PRN (22:26)
[2018-08-09] MEDS ORDERED: chlordiazePOXIDE HCL 10 MG CAPSULE PO SCH (23:00)
[2018-08-10] MEDS ORDERED: METHADONE HCL 5 MG TABLET PO ONE (06:00)
[2018-08-10 06:46] VITALS: BP 101/55; PULSE 72; TEMP 98.4
--- NOTE | 2018-08-10 10:00 | DS ---
[facility] Detox Discharge Summary Admission Date: 08/06/18 Discharge Date: 08/10/18 - History Present History: Alcohol Dependence, Opioid Dependence - Physical Exam Results Vital Signs: Vital Signs Temperature 98.4 F 08/10/18 06:45 Pulse Rate 72 08/10/18 06:45 Respiratory Rate 18 08/10/18 06:45 Blood Pressure 101/55 L 08/10/18 06:45 O2 Sat by Pulse Oximetry (%) - Treatment Hospital Course: Detox Protocol Followed, Detoxed Safely, Responded well, Discharged Condition Good, Rehab Referral Accepted - Medication Discharge Medications: Ambulatory Orders NK [No Known Home Medication] 09/25/14 - Diagnosis (1) Alcohol dependence with uncomplicated withdrawal Status: Chronic (2) Depression Status: Acute (3) Heroin dependence Status: Chronic (4) Opioid dependence with withdrawal Status: Chronic (5) Cocaine dependence Status: Chronic Qualifiers: Substance use status: uncomplicated Qualified Code(s): F14.20 - Cocaine dependence, uncomplicated (6) Depressive disorder Status: Chronic (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
== END 2018-08-10 09:16 | disposition home or self-care (01) | DRG 897 ==
LOC: YASAS 13:18 → Y6N 17:26
PROVIDERS: ADMIT Surgery; ATTEND Surgery
PROC: HZ2ZZZZ Detoxification Services for Substance Abuse Treatment (ICD-10-PCS; principal; 2018-08-06)
DX: F11.23 Opioid dependence with withdrawal (principal); F14.20 Cocaine dependence, uncomplicated; F10.230 Alcohol dependence with withdrawal, uncomplicated; F17.210 Nicotine dependence, cigarettes, uncomplicated; F32.9 Major depressive disorder, single episode, unspecified; H91.8X3 Other specified hearing loss, bilateral; G47.00 Insomnia, unspecified; R35.1 Nocturia; Z59.0 Homelessness
CPT/HCPCS: 36415; 80053; 81003; 81025; 85027; 86593; 93005; 93010; J0735